=== PATIENT | female | born 1980 | race Caucasian/White ===

== ENCOUNTER 2017-01-11 07:24 | Day surgery (SDC) | payer OTHER ==
[2017-01-07 14:27] LABS: HEMATOCRIT 44.5 % (37.0-47.0); HEMOGLOBIN 14.7 g/dL (12.0-16.0); MCH 30.1 PG (27-31); MPV 10.7 FL (7.4-10.4); RBC 4.89 XMIL (4.2-5.4)
[2017-01-07 14:44] LABS: AGAP 11; BUN 15 mg/dL (8-22); CALCIUM 8.5 mg/dL (8.8-10.2); CHLORIDE 100 mmol/L (98-107); COSMO 276; POTASSIUM 4.9 mmol/L (3.5-5.1); SODIUM 138 mmol/L (136-145); TCO2 27 mmol/L (25-35)
[2017-01-07 14:46] LABS: ALBUMIN 3.6 g/dL (3.5-5.0); ALKALINE PHOSPHATASE 124 U/L (32-104); DIRECT BILIRUBIN < 0.20 mg/dL (0.00-0.20); GOT 39 U/L (10-30); GPT 39 U/L (10-36); LIPASE 27 U/L (13-60); TOTAL BILIRUBIN 0.23 mg/dL (0.20-1.00); TOTAL PROTEIN 6.3 g/dL (6.3-8.3)
[2017-01-11] MEDS ORDERED: PEPCID ONE (07:39)
[2017-01-11] MEDS ORDERED: REGLAN ONE (07:40)
[2017-01-11] MEDS ORDERED: LR 1,000 ML ONE ×3 (07:40→11:40)
[2017-01-11] MEDS ORDERED: CLINDAMYCIN 900 MG/NS 50 ML ONE (07:40)
[2017-01-11] MEDS ORDERED: SODIUM CHLORIDE 0.9% ONE (08:33)
[2017-01-11] MEDS ORDERED: MARCAINE 0.25% PF/EPI 1:200,000 ONE (08:33)
[2017-01-11] MEDS ORDERED: DEMEROL ONE ×2 (11:00→11:16)
[2017-01-11] MEDS: PHENERGAN ONE ×2 (11:00→11:16)
--- NOTE | 2017-01-11 11:38 | Diag Imaging Result Document ---
PROCEDURE NAME: OPERATIVE CHOLANGIOGRAM - 01/11/2017 SINGLE FLUOROSCOPIC VIEW FROM A CHOLANGIOGRAM PERFORMED BY DR. BOURGEOIS: FINDINGS: Contrast filled the common bile duct and has emptied into the duodenum. No stone or stricture. Fluoroscopy time was 29 seconds. Total dose was 18.2 mGy. IMPRESSION: Normal intraoperative cholangiogram.
[2017-01-11] MEDS ORDERED: NEOSTIGMINE ONE (11:39)
[2017-01-11] MEDS ORDERED: ROBINUL ONE (11:39)
[2017-01-11] MEDS ORDERED: ZOFRAN ONE (11:39)
[2017-01-11] MEDS ORDERED: XYLOCAINE-MPF 2% ONE (11:39)
[2017-01-11] MEDS ORDERED: QUELICIN (DOSE) ONE (11:40)
[2017-01-11] MEDS ORDERED: DECADRON ONE (11:40)
[2017-01-11] MEDS ORDERED: NORCO-7.5 PO PRN (11:54)
[2017-01-11] MEDS ORDERED: ZOFRAN IV PRN (11:54)
[2017-01-11] MEDS ORDERED: FENTANYL ONE (12:12)
[2017-01-11] MEDS ORDERED: DIPRIVAN 1% ONE (12:12)
[2017-01-11 12:13] VITALS: BP 132/85
--- NOTE | 2017-01-11 16:20 | OPERATIVE NOTE ---
PROCEDURE DATE: 01/11/2017 PREOPERATIVE DIAGNOSES: 1. Symptomatic cholelithiasis. 2. Hepatitis C. POSTOPERATIVE DIAGNOSES: 1. Symptomatic cholelithiasis. 2. Hepatitis C. PROCEDURE PERFORMED: Laparoscopic cholecystectomy with intraoperative cholangiogram. SURGEON: Gennaro Aparicio MD ESTIMATED BLOOD LOSS: 5 mL. SPECIMENS: Gallbladder. INDICATIONS: This is a 36-year-old female, recently with symptomatic gallstones noted on ultrasound. OPERATIVE FINDINGS: 1. There was a normal appearing liver with no cirrhotic changes. There was a dilated, moderately inflamed gallbladder full of stones. 2. Interpretation of intraoperative cholangiogram: There was rapid flow of contrast through a moderate length cystic duct into a nondilated common bile duct with some physiologic narrowing at the head of the pancreas, but no filling defect with flow in the bilateral 2nd and 3rd degree biliary radicals. The pancreatic duct was not visualized. There were no filling defects noted. OPERATIVE NOTE: Risks, benefits, alternatives discussed with the patient, she consented to the procedure. She was seen in preoperative area and the surgery to be performed . She was taken to the operating room, placed in supine position. General anesthesia induced without complication. Incisional antibiotics were administered. Abdomen was prepped with chlorhexidine solution, draped in the usual fashion. A curvilinear infraumbilical incision was made after time-out and infiltration of local anesthetic and dissection carried down to the level of the fascia. The fascia elevated with a Tere clamp. Incision was made in the midline and access was gained in open fashion, a 12 mm Beckie trocar was placed and the abdomen was insufflated to 15 mmHg. She tolerated the procedure well. Three trocars that were 5 mm after infiltration of the peritoneum were placed. One in the epigastric, one in the midclavicular line off the costal margin, and one more laterally. A locking grasper was used to grab the gallbladder and lifted it cephalad. Starting laterally and progressing medially we stripped the peritoneum exposing the infundibulocystic junction. We dissected the cystic duct over its course with liver visualized through this triangle created. There were no other tubular structures. We clipped the cystic duct, performed a cholangiogram with above findings. After satisfactory cholangiogram, triply clipped and divided this. There were some small anterior vascular branches that we divided with electrocautery. We then identified a more substantial posterior cystic duct that was doubly clipped and divided. This appeared to come off of a branch of the right hepatic artery. We protected this, dissected this down. Removed the gallbladder from the gallbladder fossa, it was quite adherent in cephalad most aspect, and a small opening with some scant spillage of bile, but no stones was made. We removed the gallbladder, placed it in EndoCatch bag. Copiously irrigated the abdomen until clear. We inspected the gallbladder fossa. There was no bile leakage with good closure of the cystic duct and no bleeding noted. After irrigating the abdomen until clear, we removed trocars under direct visualization, desufflated the abdomen and brought the gallbladder out through the umbilical incision. We closed the fascia with interrupted 0 Vicryl sutures. Skin was closed with 4-0 Monocryl. She tolerated procedure well, there was no identified complication.
== END 2017-01-11 12:59 | disposition home or self-care (01) ==
LOC: OPS 07:24
PROVIDERS: ATTEND Surgery
DX: O99.63 Diseases of the digestive system complicating the puerperium (principal); K80.10 Calculus of gallbladder with chronic cholecystitis without obstruction; F11.99 Opioid use, unspecified with unspecified opioid-induced disorder; I38 Endocarditis, valve unspecified; F17.210 Nicotine dependence, cigarettes, uncomplicated; Z79.899 Other long term (current) drug therapy; Z86.711 Personal history of pulmonary embolism; Z86.19 Personal history of other infectious and parasitic diseases; Z81.1 Family history of alcohol abuse and dependence; Z80.3 Family history of malignant neoplasm of breast
CPT/HCPCS: 74300; 80048; 80076; 81025; 83690; 85027; 88304; C1751; J0330; J1100; J2175; J2405; J2550; J3010; J7120; Q9966; J2710; S0077